=== PATIENT | female | born 1965 ===

== ENCOUNTER 2018-06-28 13:13 | Outpatient (CLI) | payer BC | END 2018-06-28 14:11 | disposition home or self-care (01) | LOC: TOM 13:13 | DX: K57.32 Diverticulitis of large intestine without perforation or abscess without bleeding (principal) ==

== ENCOUNTER → 2018-06-28 | Outpatient (CLI) | payer BC | END | disposition home or self-care (01) | LOC: LAB 12:16 | DX: K57.32 Diverticulitis of large intestine without perforation or abscess without bleeding (principal); I11.9 Hypertensive heart disease without heart failure; E11.9 Type 2 diabetes mellitus without complications ==